=== PATIENT | male | born 1950 | race Two or more races ===

== ENCOUNTER → 2024-08-14 | Emergency (ER) | payer OTHER, BC ==
[~2024-08-14] VITALS: Ht 167.6 cm; Wt 54.9 kg
[~2024-08-14] MED LIST: OMEPRAZOLE20 MG
[2024-08-14 21:53] LABS: HEMATOCRIT 30.3 % (39.0-48.0); HEMOGLOBIN 10.2 g/dL (13-16.00); MEAN CELL VOLUME 104.5 fL (80.0-100.00); MEAN CORPUSCULAR HEMOGLOBIN 35.2 pg (27.00-32.0); MEAN CORPUSCULAR HGB CONC 33.6 g/dl (32.0-36.0); RED CELL DISTRIBUTION WIDTH 18.6 % (11.5-14.5)
[2024-08-14 21:54] LABS: PLATELET COUNT 71 K/uL (150-450)
[2024-08-14 22:19] LABS: ALBUMIN 3.4 gm/dL (3.4-5.0); BILIRUBIN TOTAL 1.01 mg/dL (0.3-1.2); CALCIUM 9.1 mg/dL (8.5-10.1); CREATININE SERUM 0.86 mg/dL (0.70-1.30); GFR 87.17; GLOBULINA 3.3 G/DL (2.4-3.5); POTASSIUM 4.27 mEq/L (3.5-5.1); TOTAL PROTEIN 6.7 gm/dL (6.4-8.2)
== END | disposition left against medical advice (07) ==
LOC: ER 17:05
PROVIDERS: Preventive Medicine Public Health & General Preventive Medicine
DX: N50.811 Right testicular pain (principal); B20 Human immunodeficiency virus [HIV] disease